=== PATIENT | male | born 1965 | race Caucasian/White ===

== ENCOUNTER 2019-01-31 06:19 | Day surgery (SDC) | payer OTHER ==
[2019-01-31] MEDS ORDERED: PROPOFOL 20 ML (07:39)
[2019-01-31] MEDS ORDERED: MIDAZOLAM 1 MG/ML 2 ML INJ IV (08:00)
[2019-01-31] MEDS ORDERED: EPHEDrine SULFATE 50 MG/5 ML SYG IV (08:00)
[2019-01-31] MEDS ORDERED: OXYCODONE/ACETAMINOPHEN (5/325) TAB PO ×2 (08:00)
[2019-01-31] MEDS ORDERED: DIPHENHYDRAMINE 50 MG INJ IV (08:00)
[2019-01-31] MEDS ORDERED: FENTAnyl 50 MCG/ML VIAL IV ×3 (08:00)
[2019-01-31] MEDS ORDERED: LABETALOL HCL 20MG INJ IV (08:00)
[2019-01-31] MEDS ORDERED: hydrALAzine 20 MG INJ IV (08:00)
[2019-01-31] MEDS ORDERED: ONDANSETRON 4 MG INJ IV (08:00)
[2019-01-31] MEDS ORDERED: METOCLOPRAMIDE 10 MG INJ IV (08:00)
[2019-01-31] MEDS ORDERED: MEPERIDINE 25 MG INJ IV (08:00)
== END 2019-01-31 12:34 | disposition home or self-care (01) ==
LOC: GIL 06:19
DX: Z12.11 Encounter for screening for malignant neoplasm of colon (principal); K64.8 Other hemorrhoids
CPT/HCPCS: 45378; 88305